=== PATIENT | male | born 1945 | race Caucasian/White ===

== ENCOUNTER 2018-07-04 09:44 | Emergency (ER) | payer MEDICARE ==
[~2018-07-04] VITALS: Ht 180.3 cm; Wt 97.7 kg
[2018-07-04 11:09] VITALS: BP 131/74
== END 2018-07-04 11:10 | disposition home or self-care (01) ==
LOC: ER 09:44
DX: M25.561 Pain in right knee (principal); G89.29 Other chronic pain
CPT/HCPCS: 29505; 99283

== ENCOUNTER 2023-02-28 23:12 | Inpatient (IN) | payer MEDICARE ==
[~2023-02-28] VITALS: Ht 180.3 cm; Wt 85.5 kg
[~2023-02-28 23:12] MED LIST: ACAR100T2 PO; ALLO300T8 PO; ATOR40TA72 PO; DUTA0.5C36 PO; FLO0.4C PO; METO-395 PO; OMEG-5 PO; TICA90TA PO
[2023-03-01] MEDS ORDERED: nitroGLYCERIN 0.2mg/hour patch TD ONE (00:20)
[2023-03-01] MEDS ORDERED: fentaNYL/PF 50MCG/1 ML 2ML syringe IV ONE (00:20)
[2023-03-01] MEDS ORDERED: pantoprazole 40 MG vial IV ONE (00:20)
[2023-03-01] MEDS ORDERED: mag hydrox/Alum hydrox/simeth 30ml oral suspension PO ONE (00:20)
[2023-03-01] MEDS ORDERED: ondansetron/PF 4mg/2ml inj IV ONE (00:20)
[2023-03-01] MEDS ORDERED: LIDOcaine Viscous 15ml cup MM ONE (00:20)
[2023-03-01] MEDS ORDERED: aspirin 81mg tab.chew PO ONE (00:20)
[2023-03-01] MEDS ORDERED: normal saline 1000ML IV soln IVB ONE (00:20)
[2023-03-01] MEDS ORDERED: nitroGLYCERIN 0.4mg SUBLingual tab SL PRN (00:20)
[2023-03-01 00:40] LABS: BILIRUBIN,URINE NEGATIVE (Neg); CLARITY,URINE SLIGHTLY CLOUDY (Clear); COLOR,URINE YELLOW (Yellow); GLUCOSE, URINE NEGATIVE (Neg); KETONES,URINE TRACE mg/dl (Neg); LEUKOCYTE ESTERASE ,URINE NEGATIVE (Neg); NITRITES, URINE NEGATIVE (Neg); OCCULT BLOOD,URINE NEGATIVE (Neg); PROTEIN,URINE NEGATIVE (Neg); UROBILINOGEN,URINE 0.2 E.U/dL (0.2-1.0)
[2023-03-01 01:01] LABS: UA COLLECTION TYPE CLN CATCH MIDSTREAM
[2023-03-01 01:04] LABS: BACTERIA,URINE 1+ /HPF (Neg); MUCUS STRANDS NONE SEEN /LPF (Neg); RBC,URINE NONE SEEN /HPF (0-2); SQUAMOUS EPITHELIAL CELL,UR FEW /LPF (FEW); WBC,URINE 0-4 /HPF (0-4)
[2023-03-01 01:19] LABS: ALANINE AMINOTRANSFERASE 44 U/L (12-78); ALBUMIN 3.9 G/DL (3.4-5.0); ALBUMIN/GLOBULIN RATIO 1.3 (1.1-1.5); ALKALINE PHOSPHATASE 40 IU/L (46-116); ANION GAP 7 (8-16); ASPARTATE AMINO TRANSFERASE 27 U/L (10-37); BILIRUBIN,TOTAL 1.8 MG/DL (0.1-1.0); BLOOD UREA NITROGEN 18 MG/DL (7-18); BUN/CREATININE RATIO 17.1 (10.0-20.0); CALCIUM 9.5 MG/DL (8.5-10.1); CHLORIDE 105 MMOL/L (99-107); CREATININE 1.05 MG/DL (0.60-1.10); GLUCOSE 163 MG/DL (70-104); POTASSIUM 3.9 MMOL/L (3.5-5.1); SODIUM 139 MMOL/L (135-145); TOTAL CARBON DIOXIDE 26.7 MMOL/L (24-32); TOTAL PROTEIN 6.9 G/DL (6.4-8.2); eCRCL 65 ML/MIN; eGFR 69 ML/MIN
[2023-03-01 01:26] LABS: LIPASE 122 U/L (73-393); MAGNESIUM 2.2 MG/DL (1.5-2.4); PHOSPHORUS 2.2 MG/DL (2.3-4.5); PRO BRAIN NATRIURETIC PEPTIDE 64 PG/ML (0-450); PRO BRAIN NATRIURETIC PEPTIDE 67 PG/ML (0-450)
[2023-03-01 01:27] LABS: BASOPHILS % (AUTO) 0.3 % (0-1); EOSINOPHILS # (AUTO) 0.1 X10'3 (0-0.9); EOSINOPHILS % (AUTO) 0.7 % (0-6); HEMATOCRIT 41.9 % (42.0-52.0); HEMOGLOBIN 14.2 g/dl (14.0-17.9); LYMPHOCYTES # (AUTO) 1.2 X10'3 (1.1-4.8); MEAN CORPUSCULAR HEMOGLOBIN 33.8 PG (27.0-31.0); MEAN CORPUSCULAR HGB CONC 33.8 g/dL (33.0-36.5); MEAN CORPUSCULAR VOLUME 99.9 FL (78-98); MEAN PLATELET VOLUME 9.7 FL (7.4-10.4); MONOCYTES # (AUTO) 0.6 X10'3 (0-0.9); MONOCYTES % (AUTO) 7.9 % (2-12); NEUTROPHILS # (AUTO) 5.7 X10'3 (1.8-7.7); NEUTROPHILS % (AUTO) 75.1 % (42-75); PLATELET COUNT 107 X10'3 (140-440); RED BLOOD COUNT 4.19 X10'6 (4.70-6.10); RED CELL DISTRIBUTION WIDTH 14.5 % (11.5-14.5); WHITE BLOOD COUNT 7.5 X10'3 (4.5-11.0)
[2023-03-01] MEDS ORDERED: pantoprazole 40MG/NS 100ML BAG 100 ML IV ONE (01:35)
--- NOTE | 2023-03-01 02:51 | NUR ---
NITRO PATCH REMOVED PER DR CHEN
[2023-03-01] MEDS ORDERED: magnesium 4gm in 100ml NS 100 ML IV PRN (02:55)
[2023-03-01] MEDS ORDERED: potassium Cl 20 mEq SR tablet PO PRN ×2 (02:55)
[2023-03-01] MEDS ORDERED: morphine 2 MG/ML inj. syringe IV PRN (02:55)
[2023-03-01] MEDS ORDERED: magnesium 2GM in 50ml NS 50 ML IV PRN (02:55)
[2023-03-01] MEDS: normal saline 1000ml 1,000 ML IV SCH ×2 (02:55→13:27)
[2023-03-01] MEDS ORDERED: potassium Cl 40MEQ/1/2NS 520ml 520 ML IV PRN (02:55)
[2023-03-01] MEDS ORDERED: ondansetron/PF 4mg/2ml inj IV PRN (02:55)
[2023-03-01] MEDS ORDERED: magnesium Cl slow-release 64mg tablet PO PRN (02:55)
[2023-03-01] MEDS ORDERED: CLOP-32 PO (02:58)
[2023-03-01] MEDS ORDERED: ASPI81TA52 PO (02:58)
[2023-03-01] MEDS ORDERED: piperacillin/tazo 3.375gm/50ml 50 ML IV STA (03:12)
[2023-03-01] MEDS ORDERED: ringers solution, lacted 1,000 ML IV ONE (03:15)
[2023-03-01] MEDS ORDERED: PERFLUTREN PROTEIN-A MICROSPHR (Optison) 0.22 MG/ML 3ML VIAL IV ONE ×2 (07:50→12:20)
[2023-03-01] MEDS ORDERED: sincalide inj 1.7 MCG in normal saline 100ml IV soln 98.3 ML IV ONE ×2 (07:50→12:20)
[2023-03-01] MEDS ORDERED: pantoprazole 40MG/NS 100ML BAG 100 ML IV SCH (08:00)
[2023-03-01] MEDS ORDERED: K and/or MAG REPLACEMENT MC SCH (08:00)
[2023-03-01 09:31] LABS: HEMOGLOBIN A1C 5.3 % (4.5-6.2)
[2023-03-01 10:17] LABS: BASOPHILS % (AUTO) 0.4 % (0-1); EOSINOPHILS # (AUTO) 0.1 X10'3 (0-0.9); EOSINOPHILS % (AUTO) 1.1 % (0-6); HEMATOCRIT 41.8 % (42.0-52.0); HEMOGLOBIN 13.9 g/dl (14.0-17.9); LYMPHOCYTES # (AUTO) 1.9 X10'3 (1.1-4.8); LYMPHOCYTES % (AUTO) 31.3 % (21-51); MEAN CORPUSCULAR HEMOGLOBIN 33.8 PG (27.0-31.0); MEAN CORPUSCULAR HGB CONC 33.3 g/dL (33.0-36.5); MEAN CORPUSCULAR VOLUME 101.5 FL (78-98); MEAN PLATELET VOLUME 9.5 FL (7.4-10.4); MONOCYTES # (AUTO) 0.6 X10'3 (0-0.9); MONOCYTES % (AUTO) 10.4 % (2-12); NEUTROPHILS # (AUTO) 3.4 X10'3 (1.8-7.7); NEUTROPHILS % (AUTO) 56.8 % (42-75); PLATELET COUNT 96 X10'3 (140-440); RED BLOOD COUNT 4.12 X10'6 (4.70-6.10); RED CELL DISTRIBUTION WIDTH 14.4 % (11.5-14.5)
[2023-03-01 10:32] LABS: APTT 26 SECONDS (22-32); INR 1.1 INR; PROTHROMBIN TIME 11.9 SECONDS (9.0-12.0)
[2023-03-01 11:02] LABS: ALANINE AMINOTRANSFERASE 36 U/L (12-78); ALBUMIN 3.6 G/DL (3.4-5.0); ALBUMIN/GLOBULIN RATIO 1.2 (1.1-1.5); ALKALINE PHOSPHATASE 35 IU/L (46-116); ANION GAP 10 (8-16); ASPARTATE AMINO TRANSFERASE 24 U/L (10-37); BILIRUBIN,TOTAL 2.1 MG/DL (0.1-1.0); BLOOD UREA NITROGEN 13 MG/DL (7-18); BUN/CREATININE RATIO 13.7 (10.0-20.0); CALCIUM 8.9 MG/DL (8.5-10.1); CHLORIDE 107 MMOL/L (99-107); CREATININE 0.95 MG/DL (0.60-1.10); GLUCOSE 103 MG/DL (70-104); POTASSIUM 4.1 MMOL/L (3.5-5.1); SODIUM 141 MMOL/L (135-145); TOTAL CARBON DIOXIDE 24.5 MMOL/L (24-32); TOTAL PROTEIN 6.6 G/DL (6.4-8.2); eCRCL 72 ML/MIN; eGFR 77 ML/MIN
--- NOTE | 2023-03-01 11:05 | NUR ---
Patient in room ED 2. I have received report from Shadow in the ED and had the opportunity to ask questions and assume patient care.
[2023-03-01 11:24] LABS: LARGE PLATELETS FEW; PLATELET ESTIMATE DECREASED
[2023-03-01 12:40] VITALS: BP 140/54; PULSE 50; RESP 16; TEMP 97.8; O2SAT 100
--- NOTE | 2023-03-01 13:17 | NUR ---
Patient arrived to the floor at approx. 12:43
[2023-03-01 13:25] VITALS: RESP 16; O2SAT 97
--- NOTE | 2023-03-01 16:53 | NUR ---
Reviewed discharge instructions with patient and spouse. Patient verbalized understanding. patient will follow up with his PCP. provided the office number for surgeon. Patient was able to dress himself and his spouse gathered his belongings. Patient was wheeled downstairs to be driven home by his spouse. No c/o pain or discomfort at this time.
== END 2023-03-01 16:55 | disposition home or self-care (01) | DRG 446 ==
LOC: ER 23:13 → ED HOLD 03-01 02:58 → OBSVTOIN 03-01 02:58 → ORTHO 4S 03-01 11:16
PROVIDERS: ADMIT Internal Medicine; ATTEND Family Medicine
PROC: CF1C1ZZ Planar Nuclear Medicine Imaging of Hepatobiliary System, All using Technetium 99m (Tc-99m) (ICD-10-PCS; principal; 2023-03-01)
DX: K81.9 Cholecystitis, unspecified (principal); E11.9 Type 2 diabetes mellitus without complications; E78.5 Hyperlipidemia, unspecified; G47.30 Sleep apnea, unspecified; I25.10 Atherosclerotic heart disease of native coronary artery without angina pectoris; M10.9 Gout, unspecified; G89.29 Other chronic pain; N40.0 Benign prostatic hyperplasia without lower urinary tract symptoms; Z85.828 Personal history of other malignant neoplasm of skin; I25.2 Old myocardial infarction; Z95.5 Presence of coronary angioplasty implant and graft; Z79.899 Other long term (current) drug therapy
CPT/HCPCS: 36415; 71045; 76700; 78227; 80053; 81001; 82948; 83036; 83605; 83690; 83735; 83880; 84100; 84484; 85008; 85025; 85610; 85651; 85730; 87040; 93005; 93308; 99285; A9537; C9113; G0378; J2405; J2543; J2805; J3010; J3490; J7030; J7040; J7120

== ENCOUNTER 2023-09-08 14:07 | Outpatient (CLI) | payer MEDICARE ==
[~2023-09-08 14:07] MED LIST changes: +ASPI81TA52 PO; +CLOP-32 PO; -METO-395 PO; -TICA90TA PO
[2023-09-08] MEDS ORDERED: COQ10 (14:58)
[2023-09-08 15:08] LABS: BILIRUBIN,URINE NEGATIVE (Neg); CLARITY,URINE CLEAR (Clear); COLOR,URINE YELLOW (Yellow); GLUCOSE, URINE NEGATIVE (Neg); KETONES,URINE TRACE mg/dl (Neg); LEUKOCYTE ESTERASE ,URINE NEGATIVE (Neg); NITRITES, URINE NEGATIVE (Neg); OCCULT BLOOD,URINE NEGATIVE (Neg); PH,URINE 5.5 (4.8-8.0); PROTEIN,URINE NEGATIVE (Neg); UROBILINOGEN,URINE 0.2 E.U/dL (0.2-1.0)
[2023-09-08 15:09] LABS: BASOPHILS % (AUTO) 0.8 % (0-1); EOSINOPHILS # (AUTO) 0.1 X10'3 (0-0.9); EOSINOPHILS % (AUTO) 1.8 % (0-6); LYMPHOCYTES # (AUTO) 1.7 X10'3 (1.1-4.8); LYMPHOCYTES % (AUTO) 27.8 % (21-51); MEAN CORPUSCULAR HEMOGLOBIN 33.6 PG (27.0-31.0); MEAN CORPUSCULAR HGB CONC 33.8 g/dL (33.0-36.5); MEAN CORPUSCULAR VOLUME 99.5 FL (78-98); MEAN PLATELET VOLUME 9.4 FL (7.4-10.4); MONOCYTES # (AUTO) 0.5 X10'3 (0-0.9); MONOCYTES % (AUTO) 8.1 % (2-12); NEUTROPHILS # (AUTO) 3.7 X10'3 (1.8-7.7); NEUTROPHILS % (AUTO) 61.5 % (42-75); PRE OP HEMATOCRIT 42.4 % (42.0-52.0); PRE OP HEMOGLOBIN 14.3 g/dL (14.0-17.9); PRE OP PLATELET COUNT 106 X10'3 (140-440); RED BLOOD COUNT 4.26 X10'6 (4.70-6.10)
[2023-09-08 15:21] LABS: ALBUMIN 3.7 G/DL (3.4-5.0); ALBUMIN/GLOBULIN RATIO 1.2 (1.1-1.5); ALKALINE PHOSPHATASE 47 IU/L (46-116); BLOOD UREA NITROGEN 20 MG/DL (7-18); CALCIUM 8.9 MG/DL (8.5-10.1); CHLORIDE 108 MMOL/L (99-107); PRE OP ALT 32 U/L (30-65); PRE OP ANION GAP 10 (8-16); PRE OP AST 30 U/L (10-37); PRE OP BILIRUB, TOTAL 1.9 MG/DL (0.0-1.0); PRE OP GLUCOSE 117 MG/DL (70-104); PRE OP POTASSIUM 4.5 MMOL/L (3.4-5.1); PRE OP SODIUM 143 MMOL/L (135-145); TOTAL CARBON DIOXIDE 24.7 MMOL/L (24-32); TOTAL PROTEIN 6.8 G/DL (6.4-8.2); eGFR 73 ML/MIN
[2023-09-08 15:27] LABS: UA COLLECTION TYPE CLN CATCH MIDSTREAM
== END 2023-09-08 23:59 | disposition home or self-care (01) ==
LOC: LAB 14:07 → EDSTATUS 09-15 12:30
PROVIDERS: ATTEND Surgery
DX: Z01.812 Encounter for preprocedural laboratory examination (principal); K81.9 Cholecystitis, unspecified
CPT/HCPCS: 36415; 80053; 81003; 85025

== ENCOUNTER 2024-09-27 20:29 | Inpatient (IN) | payer MEDICARE ==
[~2024-09-27] VITALS: Ht 180.3 cm; Wt 83.2 kg
[~2024-09-27 20:29] MED LIST changes: -CLOP-32 PO; +COQ10
[2024-09-27 20:56] LABS: BASOPHILS % (AUTO) 0.4 % (0-1); EOSINOPHILS # (AUTO) 0.1 X10'3 (0-0.9); EOSINOPHILS % (AUTO) 1.2 % (0-6); HEMATOCRIT 43.9 % (42.0-52.0); HEMOGLOBIN 14.8 g/dl (14.0-17.9); LYMPHOCYTES # (AUTO) 1.9 X10'3 (1.1-4.8); MEAN CORPUSCULAR HEMOGLOBIN 34.1 PG (27.0-31.0); MEAN CORPUSCULAR HGB CONC 33.7 g/dL (33.0-36.5); MEAN PLATELET VOLUME 8.8 FL (7.4-10.4); MONOCYTES # (AUTO) 0.8 X10'3 (0-0.9); MONOCYTES % (AUTO) 9.8 % (2-12); NEUTROPHILS # (AUTO) 5.7 X10'3 (1.8-7.7); NEUTROPHILS % (AUTO) 66.6 % (42-75); PLATELET COUNT 119 X10'3 (140-440); RED BLOOD COUNT 4.35 X10'6 (4.70-6.10); RED CELL DISTRIBUTION WIDTH 14.2 % (11.5-14.5); WHITE BLOOD COUNT 8.5 X10'3 (4.5-11.0)
[2024-09-27 21:12] LABS: ALANINE AMINOTRANSFERASE 54 U/L (12-78); ALBUMIN 4.2 G/DL (3.4-5.0); ALBUMIN/GLOBULIN RATIO 1.2 (1.1-1.5); ALKALINE PHOSPHATASE 54 IU/L (46-116); ASPARTATE AMINO TRANSFERASE 35 U/L (10-37); BILIRUBIN,TOTAL 1.8 MG/DL (0.1-1.0); BLOOD UREA NITROGEN 23 MG/DL (7-18); BUN/CREATININE RATIO 19.7 (10.0-20.0); CALCIUM 9.3 MG/DL (8.5-10.1); CREATININE 1.17 MG/DL (0.60-1.10); GLUCOSE 147 MG/DL (70-104); LIPASE 59 U/L (16-77); SODIUM 139 MMOL/L (135-145); TOTAL CARBON DIOXIDE 23.9 MMOL/L (24-32); TOTAL PROTEIN 7.6 G/DL (6.4-8.2); eCRCL 57 ML/MIN; eGFR 61 ML/MIN
[2024-09-27] MEDS: ketorolac trometh 15mg/ml vial 15 MG/ML ML IV ONE (21:25)
[2024-09-27] MEDS: ondansetron/PF 4mg/2ml inj IV ONE (21:25)
[2024-09-27 21:42] LABS: ANION GAP 14 (8-16); CHLORIDE 101 MMOL/L (99-107)
[2024-09-27] MEDS: normal saline 1000ml 1,000 ML IV ONE (21:57)
[2024-09-27] MEDS: HYDROmorphone 1 mg/ml syringe IV ONE (22:15)
[2024-09-27] MEDS: phenazopyridine 100mg tablet PO ONE (22:18)
[2024-09-27 23:06] LABS: BILIRUBIN,URINE NEGATIVE (Neg); CLARITY,URINE CLEAR (Clear); COLOR,URINE YELLOW (Yellow); GLUCOSE, URINE NEGATIVE (Neg); KETONES,URINE 40 mg/dl (Neg); LEUKOCYTE ESTERASE ,URINE NEGATIVE (Neg); NITRITES, URINE NEGATIVE (Neg); OCCULT BLOOD,URINE MODERATE (Neg); PROTEIN,URINE NEGATIVE (Neg); UROBILINOGEN,URINE 0.2 E.U/dL (0.2-1.0)
[2024-09-27 23:22] LABS: UA COLLECTION TYPE CLN CATCH MIDSTREAM
[2024-09-27 23:24] LABS: BACTERIA,URINE FEW /HPF (Neg); RBC,URINE 20-50 /HPF (0-2); SQUAMOUS EPITHELIAL CELL,UR FEW /LPF (FEW); WBC,URINE 0-4 /HPF (0-4)
[2024-09-28] VITALS (18 sets, daily range): BP systolic 116–138; BP diastolic 52–67; PULSE 16–66; RESP 14–67; TEMP 97.7–98; O2SAT 96–100
[2024-09-28] MEDS ORDERED: magnesium sulf-water 4G/100mL 100 ML IV PRN (01:00)
[2024-09-28] MEDS ORDERED: mag hydrox/Alum hydrox/simeth 30ml oral suspension PO PRN (01:00)
[2024-09-28] MEDS ORDERED: magnesium Cl slow-release 64mg tablet PO PRN (01:00)
[2024-09-28] MEDS ORDERED: potassium Cl 40MEQ/1/2NS 520ml 520 ML IV PRN (01:00)
[2024-09-28] MEDS ORDERED: acetaminophen 325mg tablet PO PRN ×2 (01:00)
[2024-09-28] MEDS ORDERED: morphine 2 MG/ML inj. syringe IV PRN ×2 (01:00→17:25)
[2024-09-28] MEDS ORDERED: potassium Cl 20 mEq SR tablet PO PRN ×2 (01:00)
[2024-09-28] MEDS ORDERED: ondansetron/PF 4mg/2ml inj IV PRN ×2 (01:00→17:25)
[2024-09-28] MEDS ORDERED: magnesium hydroxide 30ml (MOM) UD suspension PO PRN (01:00)
[2024-09-28] MEDS ORDERED: magnesium sulf-water 2g/50mL 50 ML IV PRN (01:00)
[2024-09-28 01:37] LABS: INR 1.2 INR; PROTHROMBIN TIME 12.2 SECONDS (9.0-12.0)
[2024-09-28 01:45] LABS: APTT 25 SECONDS (22-32)
[2024-09-28] MEDS: HYDROmorphone 1 mg/ml syringe IV ONE (01:48)
[2024-09-28] MEDS: normal saline 1000ml 1,000 ML IV SCH (01:53)
[2024-09-28 02:06] LABS: HEMOGLOBIN A1C 5.7 % (4.5-6.2)
[2024-09-28] MEDS: K and/or MAG REPLACEMENT MC SCH (08:00)
[2024-09-28] MEDS: docusate sod 100mg capsule PO SCH (08:00)
[2024-09-28] MEDS ORDERED: morphine 2 MG/ML inj. syringe ONE (09:33)
[2024-09-28] MEDS: morphine 2 MG/ML inj. syringe IV PRN (09:39)
[2024-09-28] MEDS ORDERED: iohexol 300 MG/1 ML 50ml polymer ONE (16:09)
[2024-09-28] MEDS ORDERED: sevoflurane 250ml liquid IH ONE (16:45)
[2024-09-28] MEDS: iohexol 300 MG/1 ML 50ml polymer IV ONE (16:45)
[2024-09-28] MEDS ORDERED: fentaNYL/PF 50MCG/1 ML 2ML syringe ONE (16:54)
[2024-09-28] MEDS ORDERED: midazolam 1 mg/ML 2ml injection ONE (16:54)
[2024-09-28] MEDS ORDERED: LIDOcaine 2% (20mg/ml) 5ml vial ONE (17:16)
[2024-09-28] MEDS ORDERED: propofol inj 20 ML IV ONE (17:16)
[2024-09-28] MEDS ORDERED: 0.9 % SODIUM CHLORIDE 10 ML VIAL ONE (17:16)
[2024-09-28] MEDS ORDERED: ePHEDrine 50MG/ML INJ. ONE (17:16)
[2024-09-28] MEDS ORDERED: ceFAZolin 1000mg inj ONE ×2 (17:16)
[2024-09-28] MEDS ORDERED: proCHLORperazine 10 MG/2 ml inj IV PRN (17:25)
[2024-09-28] MEDS ORDERED: hydrALAZINE 20mg/ml inj. IV PRN (17:25)
[2024-09-28] MEDS ORDERED: morphine 4 MG/ML inj SYRINge IV PRN (17:25)
[2024-09-28] MEDS ORDERED: meperidine/PF 25mg/ml syringe IV PRN (17:25)
[2024-09-28] MEDS ORDERED: acetaminophen 1,000mg/100ml IV 100 ML IV PRN (17:25)
[2024-09-28] MEDS ORDERED: HYDROmorphone/PF 0.2 MG/ML SYRINGE IV PRN ×2 (17:25)
[2024-09-28] MEDS ORDERED: labetalol 20mg/4ml (5mg/ml) syringe IV PRN (17:25)
[2024-09-28] MEDS ORDERED: glucagon, human recombinant 1mg kit SUBCUT PRN (17:50)
[2024-09-28] MEDS ORDERED: dextrose 50%-water 50ml dispensing syringe IV PRN ×2 (17:50)
[2024-09-28] MEDS ORDERED: DEXTROSE 15 GM of carb/4 tabs (each vial/BOTTLE has 4 tablets) PO PRN ×2 (17:50)
[2024-09-28] MEDS: normal saline 1000ml 1,000 ML IV ONE (17:59)
[2024-09-28] MEDS: HYDROmorphone inj. 0.5 MG/0.5 ML DISP.SYRIN IV ONE (18:00)
[2024-09-28] MEDS: OMEGA-3/DHA/EPA/FISH OIL 1 EACH CAPSULE.DR PO SCH (19:21)
[2024-09-28] MEDS: tamsulosin 0.4mg capsule PO SCH (19:21)
[2024-09-28] MEDS: INSULIN LISPRO 100 UNIT/ML INSULN.PEN MULTI-DOSE SQ SCH (21:00)
[2024-09-29 05:10] LABS: BASOPHILS % (AUTO) 0.1 % (0-1); EOSINOPHILS % (AUTO) 0 % (0-6); HEMATOCRIT 41.7 % (42.0-52.0); LYMPHOCYTES # (AUTO) 0.6 X10'3 (1.1-4.8); LYMPHOCYTES % (AUTO) 7.8 % (21-51); MEAN CORPUSCULAR HEMOGLOBIN 34.4 PG (27.0-31.0); MEAN CORPUSCULAR HGB CONC 33.7 g/dL (33.0-36.5); MEAN PLATELET VOLUME 9.2 FL (7.4-10.4); MONOCYTES # (AUTO) 0.2 X10'3 (0-0.9); MONOCYTES % (AUTO) 2.6 % (2-12); NEUTROPHILS # (AUTO) 6.8 X10'3 (1.8-7.7); NEUTROPHILS % (AUTO) 89.5 % (42-75); PLATELET COUNT 95 X10'3 (140-440); RED BLOOD COUNT 4.08 X10'6 (4.70-6.10); RED CELL DISTRIBUTION WIDTH 14.1 % (11.5-14.5); WHITE BLOOD COUNT 7.6 X10'3 (4.5-11.0)
[2024-09-29 05:25] LABS: ALBUMIN 2.9 G/DL (3.4-5.0); ANION GAP 9 (8-16); BLOOD UREA NITROGEN 20 MG/DL (7-18); BUN/CREATININE RATIO 16.9 (10.0-20.0); CALCIUM 8.4 MG/DL (8.5-10.1); CHLORIDE 109 MMOL/L (99-107); CHOL/HDL RATIO 1.8 (0.00-4.99); CHOLESTEROL 108 MG/DL (0-200); CREATININE 1.18 MG/DL (0.60-1.10); GLUCOSE 147 MG/DL (70-104); HDL CHOLESTEROL 59 MG/DL (35-60); LDL CHOLESTEROL 44 MG/DL (50-100); MAGNESIUM 1.9 MG/DL (1.5-2.4); POTASSIUM 4.8 MMOL/L (3.5-5.1); SODIUM 144 MMOL/L (135-145); TOTAL CARBON DIOXIDE 26.3 MMOL/L (24-32); TRIGLYCERIDES 33 MG/DL (20-135); eCRCL 57 ML/MIN; eGFR 60 ML/MIN
[2024-09-29 06:00] VITALS: BP 116/55; PULSE 49; RESP 16; TEMP 96.5; O2SAT 96
[2024-09-29 08:00] VITALS: RESP 49; O2SAT 96
[2024-09-29] MEDS ORDERED: dutasteride 0.5 MG capsule PO SCH (08:00)
[2024-09-29] MEDS ORDERED: tamsulosin 0.4mg capsule PO SCH (08:00)
[2024-09-29] MEDS: enoxaparin 40mg/0.4ml syringe SUBCUT SCH (08:00)
[2024-09-29] MEDS: aspirin 81mg, enteric-coated 1 TAB TABLET.DR PO SCH (08:22)
[2024-09-29] MEDS: atorvastatin 20mg tablet PO SCH (08:22)
[2024-09-29] MEDS: allopurinol 300 MG tablet PO SCH (08:22)
[2024-09-29 10:00] VITALS: BP 117/64; PULSE 50; RESP 16; TEMP 97.5; O2SAT 98
== END 2024-09-29 12:00 | disposition home or self-care (01) | DRG 661 ==
LOC: ER 20:30 → ED HOLD 09-28 01:03 → ORTHO 4S 09-28 18:56
PROVIDERS: ADMIT Internal Medicine; ATTEND Family Medicine
PROC: 0T778DZ Dilation of Left Ureter with Intraluminal Device, Via Natural or Artificial Opening Endoscopic (ICD-10-PCS; 2024-09-28)
PROC: BT1F1ZZ Fluoroscopy of Left Kidney, Ureter and Bladder using Low Osmolar Contrast (ICD-10-PCS; principal; 2024-09-28 16:45)
DX: N13.2 Hydronephrosis with renal and ureteral calculous obstruction (principal); N17.0 Acute kidney failure with tubular necrosis; D75.89 Other specified diseases of blood and blood-forming organs; I25.10 Atherosclerotic heart disease of native coronary artery without angina pectoris; Z79.82 Long term (current) use of aspirin; Z79.899 Other long term (current) drug therapy; Z90.49 Acquired absence of other specified parts of digestive tract
CPT/HCPCS: 36415; 74176; 74420; 76000; 80048; 80053; 80061; 81001; 82607; 82948; 83036; 83690; 83735; 84132; 85025; 85610; 85730; 87081; 93005; 96374; 96375; 99285; A4618; C1758; C1769; C2617; G0378; J0690; J1100; J1171; J1815; J1885; J2003; J2250; J2270; J2405; J2704; J3010; J3490; J7030; Q9967

== ENCOUNTER 2025-03-26 07:30 | Day surgery (SDC) | payer MEDICARE ==
[~2025-03-26] VITALS: Ht 180.3 cm; Wt 81.3 kg
[2025-03-26] VITALS (8 sets, daily range): BP systolic 129–151; BP diastolic 61–77; PULSE 43–50; RESP 12–16; TEMP 97.6; O2SAT 94–98
[~2025-03-26 07:30] MED LIST changes: -FLO0.4C PO; +TAMS-55 PO
--- NOTE | 2025-03-26 08:03 | ELECTROCARDIOGRAPH REPORT ---
[facility] Test Date: 2025-03-26 Test Time: 08:01:43 Pat Name: SOBEIDA LATHAM Department: [facility] Patient ID: [facility]-[id number] Room: Gender: M Housekeeper Nanny: JANICE : 1945 Requested By: CAROLYN WONG Order Number: [id number] Reading MD: Dr. MARICEL Ramsey Measurements Intervals [place] Rate: 49 P: 76 NV: 187 QRS: 10 QRSD: 159 T: 60 QT: 505 QTc: 456 Interpretive Statements Sinus bradycardia Left bundle branch block Electronically Signed On 03-26-2025 13:52:[address] MARICEL Ramsey Please click the below link to view image of tracing.
[2025-03-26] MEDS ORDERED: DOCO1CAP11 PO (08:11)
[2025-03-26 08:32] LABS: MEAN PLATELET VOLUME 8.7 FL (7.4-10.4); RED CELL DISTRIBUTION WIDTH 14.3 % (11.5-14.5)
[2025-03-26 08:48] LABS: CREATININE 1.06 MG/DL (0.60-1.10); TOTAL CARBON DIOXIDE 26.9 MMOL/L (24-32); eCRCL 62 ML/MIN; eGFR 68 ML/MIN
[2025-03-26 08:50] LABS: INR 1.1 INR
[2025-03-26] MEDS: sodium bicarbonate 1meq/ml syr 150 ML in dextrose 5%-water 1,000 ML IV ONE (08:58)
[2025-03-26] MEDS ORDERED: iohexol 300mg/ml 100ml inj. ONE (10:33)
[2025-03-26] MEDS ORDERED: LIDOcaine 1% 30ml preserv. free vial ONE (10:33)
[2025-03-26] MEDS ORDERED: heparin 1,000unit/ml 10ml vial 10 ML ONE (10:33)
[2025-03-26] MEDS ORDERED: iohexol 350 MG/ML 50ML vial IV ONE (10:33)
[2025-03-26] MEDS ORDERED: midazolam 1 mg/ML 2ml injection ONE (10:54)
[2025-03-26] MEDS ORDERED: fentaNYL/PF 50MCG/1 ML 2ML syringe ONE (10:54)
[2025-03-26] MEDS ORDERED: HYDROcodone/acetaminophen 5mg/325mg tablet PO PRN (12:10)
[2025-03-26] MEDS ORDERED: HYDROcodone/acetaminophen 10/325mg tab PO PRN (12:10)
[2025-03-26] MEDS ORDERED: ondansetron/PF 4mg/2ml inj IV PRN (12:10)
[2025-03-26] MEDS ORDERED: TICA90TA2 PO (13:04)
--- NOTE | 2025-03-26 14:22 | CARDIOLOGY REPORT ---
DATE OF SERVICE: 03/26/2025 DICTATING PHYSICIAN: CAROLYN WONG DO CARDIAC CATHETERIZATION REPORT REFERRING PHYSICIAN: Carolyn Wong DO CLINICAL HISTORY: This 79-year-old man has been having intermittent episodes of vague chest discomfort, lightheadedness, and sudden onset dyspnea. There is a prior history of mid LAD stenting in early 2022. The patient is not thought to have gastroesophageal reflux since he is taking a good proton pump inhibitor and taking it correctly. Given his past history and the fact that his episodes have occurred most often with exertion, a cardiac catheterization has been ordered. PROCEDURES PERFORMED: * Left heart catheterization. * Left ventriculography. * Selective coronary arteriography. * PTCA/complex coronary angioplasty (mid LAD and principal LAD diagonal). * Percutaneous arteriotomy closure (Perclose). * 45 minutes conscious sedation supervision. DESCRIPTION OF PROCEDURE: The patient was sedated with fentanyl and Versed. He was then prepared and draped in the usual manner. The right inguinal area was infiltrated with 1% lidocaine using a micropuncture set and a Seldinger technique. A 7-Sammarinese sheath was placed in the common femoral artery, 3000 units of heparin were given. Left heart catheterization and left ventriculography were performed using a 6-Sammarinese pigtail catheter. Coronary arteriography was performed using 6-Sammarinese #4 left and right Anel catheters. PTCA/STENT PLACEMENT: The patient was given an additional 7000 units of heparin. The left main coronary was engaged with a 6-Sammarinese 3.5 XB LAD guiding catheter. A ChoICE PT2 guidewire was passed down through the mid LAD in position distally. A Whisper wire was passed across a high-grade stenosis at the origin of the principal diagonal and the tip was positioned distally. Next, a 2 x 8 mm Adrien Watkins drug-eluting stent was placed across a high-grade stenosis at the origin of the diagonal. At the same time, a 2.75 x 15 mm Swanton Watkins drug-eluting stent was placed in the LAD directly adjacent to the diagonal stent (in a double barrel shotgun fashion). Both were inflated at 6 atmospheres. Next, the diagonal stent was inflated to a maximum of 16 atmospheres, then both were inflated to 12 atmospheres. After test injections demonstrated stability of the treated areas, final arteriography was performed. RESULTS: HEMODYNAMIC DATA: The left ventricular end-diastolic pressure was 8 mmHg. There was a 12 mm gradient across the aortic valve. LEFT VENTRICULOGRAM: The left ventriculogram was technically satisfactory. The LVEF was estimated to be about 35%. A stent was visible in the distal right coronary and in the mid LAD. The LAD stent was beyond the bifurcation involving the principal diagonal branch. CORONARY ARTERIOGRAPHY: The coronary arteriograms were technically satisfactory. The patient had a right dominant system. LEFT MAIN CORONARY ARTERY: The left main was a large unobstructed vessel trifurcating into left anterior descending, intermediate, and circumflex coronary arteries. LEFT ANTERIOR DESCENDING CORONARY ARTERY: The LAD was a dwqizw-hy-qzwbh transapical vessel. There was a tiny first diagonal taking its origin proximally. There was a large second diagonal taking its origin directly across from the first major septal manager cancer. There were no other diagonal branches. The origin of the large second diagonal was narrowed by about 95%. A stent in the mid LAD was widely patent. INTERMEDIATE ARTERY: The intermediate artery was a very small caliber unobstructed vessel. CIRCUMFLEX CORONARY ARTERY: The circumflex was a large main stem vessel. There was a large first obtuse marginal. There was a very small caliber second obtuse marginal and a small caliber posterolateral branch. There were no obstructive lesions in the circumflex coronary artery. RIGHT CORONARY ARTERY: The right coronary artery was a large main stem vessel. There was a small caliber posterior descending branch. The ongoing right coronary was composed of first a very small caliber and then a small to medium-sized second posterolateral branch. The origin of the ongoing right coronary just beyond the takeoff of the posterolateral branch was narrowed by about 60%. The mid right coronary was narrowed by about 40%. PTCA/STENT PLACEMENT: Following stenting of the more proximal mainstem LAD and the high-grade stenosis involving a large principal diagonal branch was successful in that there was no significant residual stenosis in either vessel and brisk runoff distally. CONCLUSIONS: * Obstructive coronary artery disease manifested as a 95% stenosis at the origin of a large principal LAD diagonal. Other areas of interest were 40% mid right coronary and a 60% narrowing at the origin of the far distal right coronary just beyond the posterior descending branch. * Successful PTCA/simultaneous LAD/diagonal stenting. Following the intervention, there was no significant residual stenosis in either vessel. ELMER flow was graded as 3 before and after the intervention. * Left ventricular function is reduced. The estimated LVEF is 35%. Notably, this patient has left bundle branch block. PLAN: Ongoing medical therapy. CAROLYN WONG DO TID: [id number] RECEIPT: [id number] CONRAD/LIZZY/COLIN MACKEY
== END 2025-03-26 16:30 | disposition home or self-care (01) ==
LOC: SSTAY O 07:30
PROVIDERS: ATTEND Internal Medicine Cardiovascular Disease
DX: R07.89 Other chest pain (principal); I25.10 Atherosclerotic heart disease of native coronary artery without angina pectoris; I44.7 Left bundle-branch block, unspecified; E11.65 Type 2 diabetes mellitus with hyperglycemia; E78.5 Hyperlipidemia, unspecified; G47.30 Sleep apnea, unspecified; Z79.82 Long term (current) use of aspirin; Z79.899 Other long term (current) drug therapy; Z90.49 Acquired absence of other specified parts of digestive tract; Z98.890 Other specified postprocedural states; Z82.49 Family history of ischemic heart disease and other diseases of the circulatory system
CPT/HCPCS: 36415; 80048; 82948; 83735; 85025; 85610; 93005; 93458; 99152; 99153; A6258; A6402; C1725; C1751; C1760; C1769; C1874; C1894; C9600; C9601; J1171; J1644; J2003; J2250; J3010; J3490; J7030; J7070; Q0163; Q9967; Z7610; A6449

== ENCOUNTER 2025-03-26 20:05 | Emergency (ER) | payer MEDICARE ==
[~2025-03-26 20:05] MED LIST changes: +DOCO1CAP11 PO; +TICA90TA2 PO
--- NOTE | 2025-03-26 20:52 | Physician Documentation ---
History of Present Illness ~ Chief Complaint: Post-operative complication Stated Complaint: INCISION BLEEDING Time Seen by MD: 20:28 Primary Medical Doctor: [facility] This very pleasant 79-year-old male had an angiogram done this morning on his r ight femoral region two stents placed. Primary reason he is here today as he is concerned about bleeding from the femoral site. Denies any chest pain or shortness of breath. States he was moving around this afternoon which he thinks likely cause the bleeding. Reported that his bandage showed evidence of blood leakage from the site. Day of Onset: Mar 26, 2025 Medication Reconciliation Allergies: Coded Allergies: No Known Allergies (Unverified , 07/04/18) Scheduled Acarbose* (Precose*), 1 TAB PO TID, (Reported) Allopurinol (Allopurinol), 1 TAB PO DAILY, (Reported) Aspirin (Aspirin EC), 1 TAB PO DAILY, (Reported) Atorvastatin Calcium (Atorvastatin Calcium), 1 TAB PO DAILY, (Reported) Docosahexanoic Acid/Epa (Fish Oil Softgel), 1 CAP PO DAILY, (Reported) Dutasteride (Dutasteride), 1 CAP PO DAILY, (Reported) Tamsulosin Hcl* (Flomax*), 1 CAP PO DAILY, (Reported) Ticagrelor (Brilinta), 1 TAB PO BID Discontinued Medications Docosahexanoic Acid/Epa (Fish Oil 1,000 Mg Softgel), 1 CAP PO BID, (Reported) Discontinued Reason: patient no longer taking [Coq10], (Reported) Discontinued Reason: patient no longer taking Past Medical History Past Medical History: Coronary Artery Disease, Chronic Pain Past Surgical History: angioplasty Patient History: FH: [place] (myocardial infarction) Alcohol Use: None Drug Use: none Lives with: Spouse, Family Lives In: Home Occupation: retired Review of Systems All Other Systems at this time: Reviewed and Negative ROS As stated above in the HPI, otherwise all systems are reviewed and negative. Physical Exam Vital Signs: Temperature: 98.0, Heart Rate: 55, Respiratory Rate: 16, BP: 105/63, Pulse Oximetry: 98 General Appearance General: Alert, no apparent distress. Respiratory: Lungs clear, no respiratory distress. Chest: No accessory muscle use. Cardiovascular: Regular rate and rhythm, no murmurs. Gastrointestinal: Soft, nontender, nondistended. Bowels sounds present. Extremities: Normal range of motion, no deformity. Trace bleeding at the femoral insertion site right-sided Neurologic: Oriented x4. Psychiatric: Normal mood and affect. Skin: Normal color, warm and dry. No edema, no ecchymosis. Progress Results/Orders Results/Orders Vital Signs 03/26/25 03/26/25 20:18 21:12 Temp 98.0 98.6 Pulse 55 56 Resp 16 16 B/P (MAP) 105/63 107/64 Pulse Ox 98 99 Medical Decision Making Findings I discussed with the patient that the amount of bleeding from the insertion site is not had normal. There was no signs of profuse bleeding. Nursing staff of replace the bandage and provide wound care supplies in case he does have some minor bleeding from the site. Also advised him to contact medical coding technician tomorrow if he continues to have bleeding. He has not been taking blood thinners. Does not present acutely ill. Spent a good amount of time reassuring the patient. Differential Dx:Considerations: Include: lew's cyst, Cancer, Cellulitis, Congestive heart failure, Compartment syndrome, Contusion, Deep venous thrombo sis, Liver failure, Malnutrition, Muscle spasm, Plantaris rupture, Popliteal vein aneurysm, Renal faliure, Strain, Superfic thrombophlebitis, Venous insufficiency, Other Departure Disposition: 01 HOME / SELF CARE / HOMELESS Impression: Primary Impression: Post-op bleeding Discharge Instructions: Angiogram, Care After, [id number] Additional Instructions: Please monitor the insertion site for ongoing postoperative bleeding. Provided you with new dressing and ongoing wound care supplies. Referrals: NO PRIMARY CARE PROVIDER (PCP) Education Educated: Patient Educated regarding: diagnosis Signature Scribe Signature: i Attestation: Scribed for Bubba Hammond Accreditation Coordinator by Bubba Hill NP . 03/26/25 21:44 BUBBA HAMMOND NP Mar 26, 2025 20:52
[2025-03-26 21:12] VITALS: BP 107/64; PULSE 56; RESP 16; TEMP 98.6; O2SAT 99
== END 2025-03-26 21:13 | disposition home or self-care (01) ==
LOC: ER 20:06
DX: L76.22 Postprocedural hemorrhage of skin and subcutaneous tissue following other procedure (principal); G89.29 Other chronic pain; I25.10 Atherosclerotic heart disease of native coronary artery without angina pectoris; Z95.5 Presence of coronary angioplasty implant and graft
CPT/HCPCS: 99282; A4330; A6258; A6402

== ENCOUNTER 2025-04-23 06:26 | Day surgery (SDC) | payer MEDICARE ==
[~2025-04-23] VITALS: Ht 180.3 cm; Wt 81.6 kg
[~2025-04-23 06:26] MED LIST changes: -COQ10; -OMEG-5 PO; +ceFAZolin 2gm/dext,iso 50mL 50 ML IV ONE
--- NOTE | 2025-04-23 06:57 | ELECTROCARDIOGRAPH REPORT ---
[facility] Test Date: 2025-04-23 Test Time: 06:54:33 Pat Name: SOBEIDA LATHAM Department: [facility] Patient ID: [facility]-[id number] Room: Gender: M Router Operator Pin: JANICE : 1945 Requested By: CAROLYN WONG Order Number: [id number] Reading MD: Dr. Hu Hernandez Measurements Intervals [place] Rate: 44 P: 77 HI: 189 QRS: -8 QRSD: 160 T: 77 QT: 515 QTc: 441 Interpretive Statements Sinus bradycardia Left bundle branch block Baseline wander in lead(s) V4,V6 Electronically Signed On 04-23-2025 7:12:[address] Hu Hernandez Please click the below link to view image of tracing.
[2025-04-23 07:14] VITALS: BP 124/61; PULSE 43; RESP 16; TEMP 98.2; O2SAT 98
[2025-04-23 07:29] LABS: MEAN PLATELET VOLUME 9.2 FL (7.4-10.4); RED CELL DISTRIBUTION WIDTH 14.5 % (11.5-14.5)
[2025-04-23 07:38] LABS: CREATININE 0.88 MG/DL (0.60-1.10); TOTAL CARBON DIOXIDE 23.5 MMOL/L (24-32); eCRCL 75 ML/MIN; eGFR 84 ML/MIN
[2025-04-23 07:40] LABS: INR 1.1 INR
[2025-04-23] MEDS: normal saline 1000ml 1,000 ML IV SCH (07:41)
[2025-04-23] MEDS: VANCOMYCIN 1,500MG inj. 1,500 MG in normal saline 500ml IV soln 300 ML IV ONE (07:59)
[2025-04-23] MEDS ORDERED: LIDOcaine 1% W/epiNEPHrine 1:100,000 20ml vial ONE (08:51)
[2025-04-23] MEDS ORDERED: iohexol 350 MG/ML 50ML vial IV ONE ×2 (08:51→10:03)
[2025-04-23] MEDS ORDERED: midazolam 1 mg/ML 2ml injection ONE ×4 (08:51→11:29)
[2025-04-23] MEDS ORDERED: vancomycin 1,000mg inj ONE (08:51)
[2025-04-23] MEDS ORDERED: fentaNYL/PF 50MCG/1 ML 2ML syringe ONE ×2 (08:51→10:11)
[2025-04-23] MEDS ORDERED: TICA90TA6 PO (12:08)
[2025-04-23 12:15] VITALS: BP 122/65; PULSE 64; RESP 16; O2SAT 96
[2025-04-23] MEDS ORDERED: HYDROcodone/acetaminophen 5mg/325mg tablet PO PRN (12:25)
[2025-04-23] MEDS ORDERED: normal saline 1000ml 1,000 ML IV SCH (12:25)
[2025-04-23] MEDS ORDERED: HYDROcodone/acetaminophen 10/325mg tab PO PRN (12:25)
[2025-04-23 12:30] VITALS: BP 111/70; PULSE 63; RESP 16; O2SAT 96
[2025-04-23 12:45] VITALS: BP 117/71; PULSE 61; RESP 16; O2SAT 96
--- NOTE | 2025-04-23 12:54 | CARDIOLOGY REPORT ---
DATE OF SERVICE: 04/23/2025 DICTATING PHYSICIAN: CAROLYN WONG DO CARDIAC CATHETERIZATION REPORT REFERRING PHYSICIAN: Carolyn Wong DO PROCEDURES PERFORMED: * Left upper extremity venography. * Coronary venography. * Placement of a coronary venous/LV electrode. * Placement of an RV electrode. * Placement of a right atrial electrode. * Implant of a biventricular pacemaker pulse generator. * 2 hours and 15 minutes conscious sedation supervision. PREOPERATIVE DIAGNOSES: * Left bundle branch block. 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 * Marked sinus bradycardia (on no rate slowing medicines). POSTOPERATIVE DIAGNOSES: * Left bundle branch block. 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 * Marked sinus bradycardia (on no rate slowing medicines). CLINICAL HISTORY: This 79-year-old man has had complaints of fatigue and positional dizziness. He has had at least 2 separate extended rhythm recordings demonstrating heart rates in the mid to low 30s. In addition, he also has left bundle branch block with a very wide QRS complex. Within the last 6 months, he has had coronary interventions to the LAD and an LAD diagonal. The left ventriculogram at that time demonstrated an ejection fraction of 35%. He has wall motion abnormalities that are typically seen with left bundle branch block. ANESTHESIA: Conscious sedation with local to skin. DEVICES IMPLANTED: Medtronic coronary venous/LV electrode model #4798 and serial #[id number]; Medtronic RV electrode model #4076 and serial #[id number]; Medtronic atrial electrode model #4076 and serial #[id number]; Medtronic pulse generator model #W4TR03 and serial #[id number]. DESCRIPTION OF PROCEDURE: The patient was sedated with fentanyl and Versed. He was then prepared and draped in the usual manner. The left pectoral region was liberally infiltrated with 1% lidocaine containing a 1:100,000 mixture of epinephrine. Using a micropuncture set in the Seldinger technique, a small guidewire was placed in the subclavian vein. A 5 cm incision was made directly adjacent to the guidewire and a subcutaneous pocket was created with electrocautery. Using the retained guidewire and the micropuncture size-up sheath, a 0.035 wire and a 9-American sheath were placed in the central venous circulation. Next, using an 8-American extended hook catheter, the coronary sinus was engaged. Coronary venography was performed and a satisfactory high lateral coronary vein was identified. The left ventricular electrode was easily placed in this location. In this location, sensing and pacing evaluation demonstrated a pacing impedance of 570 ohms with a threshold for capture of 0.5 volts at 1 millisecond. Using the same Seldinger technique and a 7-American sheath, the right ventricular electrode was passed into the right atrium, prolapsed across the tricuspid valve and positioned on the mid to high interventricular septum. The screw was extended. The stylet was withdrawn and sensing and pacing evaluation demonstrated an R-wave amplitude of 3 millivolts and impedance of 646 ohms and a threshold for capture of 0.75 volts. A second 7-American sheath was also placed in the central venous circulation. The right atrial lead was passed through the sheath and into the right atrium and right atrial appendage. The screw was extended. The stylet was withdrawn and sensing and pacing evaluation demonstrated a P-wave amplitude of 3.8 millivolts and impedance of 798 ohms and a threshold for capture of 1 volt. All sheaths were removed while ensuring stability of the electrodes and fluoroscopic observation. A 3-0 Vicryl suture was placed around the electrodes at their exit point from the pectoral fascia. The electrodes were then attached to the generator and together they were placed in the pocket. The generator was suspended with a 0 Ethibond suture. The pocket was irrigated with a vancomycin antibiotic solution. The subcutaneous layer was closed with 3-0 Vicryl and the skin was approximated with 4-0 Monocryl. ESTIMATED BLOOD LOSS: About 15 mL. COMPLICATIONS: No complications. PLAN: Initial taye parameters were as follows: Mode DDDR, LRL 60 ppm, upper activity rate 120 BPM, upper tracking rate 130 BPM, paced AV delay 130 milliseconds, sensed AV delay 100 milliseconds, amplitude and pulse width on the atrial and right ventricular electrodes was set at 3.5 volts and 0.4 milliseconds. Atrial sensitivity set at 0.3 millivolts. Right ventricular sensitivity at 0.9 millivolts. Left ventricular amplitude set at 2.5 volts with a pulse width of 1.0 milliseconds. A chest x-ray was pending at the time of this dictation. CAROLYN WONG DO TID: [id number] RECEIPT: [id number] CONRAD/FANNY
[2025-04-23 13:00] VITALS: BP 112/65; PULSE 61; RESP 15; O2SAT 96
[2025-04-23 13:15] VITALS: BP 107/61; PULSE 61; RESP 15; O2SAT 93
--- NOTE | 2025-04-23 13:18 | RADIOLOGY REPORT ---
EXAM: DI CHEST,SINGLE VIEW Indication: s/p pacemaker insertion Technique: Single frontal view of the chest was obtained Comparison: DI CHEST,SINGLE VIEW on DOS: 03/01/23, CHEST,SINGLE VIEW on DOS: 10/12/22 FINDINGS: Lines and Tubes: cardiac pacemaker projects over left chest wall. Lungs: No focal consolidation. Pleura: No effusion. No pneumothorax. Cardiomediastinal contours: Unremarkable Bones: No acute osseous abnormality. IMPRESSION: No acute cardiopulmonary disease.
== END 2025-04-23 14:00 | disposition home or self-care (01) ==
LOC: SSTAY O 06:26
PROVIDERS: ATTEND Internal Medicine Cardiovascular Disease
DX: I44.7 Left bundle-branch block, unspecified (principal); I42.9 Cardiomyopathy, unspecified; R00.1 Bradycardia, unspecified; I10 Essential (primary) hypertension; E11.9 Type 2 diabetes mellitus without complications; I25.10 Atherosclerotic heart disease of native coronary artery without angina pectoris; E78.5 Hyperlipidemia, unspecified; G47.30 Sleep apnea, unspecified; Z79.82 Long term (current) use of aspirin; Z79.899 Other long term (current) drug therapy; Z90.49 Acquired absence of other specified parts of digestive tract; Z98.890 Other specified postprocedural states
CPT/HCPCS: 33208; 33225; 36415; 71045; 80048; 83735; 85025; 85610; 93005; 99152; 99153; A4565; A6258; C1769; C1898; C1900; C2621; J2060; J2250; J3010; J3373; J3490; J7030; J7040; Q9967; Z7610